=== PATIENT | female | born 1985 | race Caucasian/White ===

== ENCOUNTER 2017-06-22 12:37 | Observation (INO) ==
[2017-06-22] MEDS ORDERED: Acetaminophen 325 MG TABLET PO ONE (13:38)
[2017-06-22 13:43] LABS: Bilirubin,Urine Negative (Negative); Blood,Urine Negative (Negative); Clarity,Urine Clear (Clear); Color,Urine Yellow (Yellow); Glucose,Urine (UA) Normal (Normal); Ketones,Urine Negative (Negative); Leukocyte Esterase,Urine Negative (Negative); Nitrite,Urine Negative (Negative); PH,Urine 7.5 pH Units (5.0-8.0); Protein,Urine Negative (Neg-Trace); Specific Gravity,Urine < 1.005 (1.010-1.025); Urobilinogen,Urine Normal (Normal)
[2017-06-22 13:48] LABS: Amphetamine Screen,Urine Negative ng/mL (Cutoff=1000); Barbiturate Screen,Urine Negative ng/mL (Cutoff=200); Benzodiazepines Screen,Urine Negative ng/mL (Cutoff=200); Cannabinoid Screen,Urine Negative ng/mL (Cutoff = 50); Cocaine Screen,Urine Negative ng/mL (Cutoff= 300); Opiate Screen,Urine Negative ng/mL (Cutoff=300); Phencyclidine Screen,Urine Negative ng/mL (Cutoff=25)
--- NOTE | 2017-06-22 14:02 | OB/GYN Progress Note ---
Date of Encounter: 06/22/17 Time of Encounter: 13:59 - Assessment and Plan (1) Lower abdominal pain Current Visit: Yes Status: Acute Intermittent pain over the past 2 weeks, no alarm symptoms - consistent with round ligament pain No contractions noted on monitor. No LOF or vaginal bleeding FHT - baseline 140 with variability and accels - Category I UA negative Pt has close follow-up with primary OB. She can be discharged home with labor precautions (2) Headache Current Visit: Yes Status: Acute Pt reports headache consistent with tension type headache - consistent with the patient's previous headaches Denies taking any medication - will give tylenol BP 123/78 Qualifiers: Headache type: tension-type Headache chronicity pattern: acute headache Intractability: not intractable Qualified Code(s): G44.209 - Tension-type headache, unspecified, not intractable (3) 33 weeks gestation of Current Visit: Yes Status: Acute Subjective - Subjective Principal diagnosis: abdominal pain Interval history: Pt is a 32 year old female at 33w4d presenting to L&D with concerns of lower abdominal pain, headache, and hemorrhoids. She reports that for the past 2 weeks she has had intermittent lower abdominal pain. She denies fevers, chills , dyspnea, N/V, constipation, diarrhea, or dysuria. She isn't sure if this pain is contractions or not. She states she had a headache but has not taken any tylenol for it. She denies vision changes, RUQ pain, or edema. She is reporting some pain with hemorrhoids as well. She reports good movement. Denies loss of fluid, vaginal bleeding, or vaginal discharge. She denies any complications with this . She has an appointment with her primary OB in 2 days. I examined this patient and my medical decision-making was reviewed with the Resident Physician. I agree with the documented findings, disposition and treatment plan as described except to the extent set forth below. FELI Perez Antepartum ROS: new complaints, movement normal, no loss of fluid, no vaginal bleeding, no contractions Objective - Vital Signs Vital Signs: Intake and Output 06/21/17 06/22/17 06/22/17 23:59 07:59 15:59 Other: Weight 74.7 kg Patient Weight 06/22/17 23:59 Weight 74.7 kg - Exam FHR: auscultation normal, category 1 FHR comments: Baseline 140 with variability and accels - Category I Auscultation: bilateral: normal Abdomen: Present: normal appearance, soft, gravid, tenderness (mild tenderness in lower R and L quadrants) Uterus: Present: normal, firm - Labs Labs: Abnormal lab results Ur Specific [place] < 1.005 (1.010-1.025) L 06/22/17 13:28
== END 2017-06-22 14:18 | disposition home or self-care (01) ==
LOC: 1NENULAB
PROVIDERS: ADMIT Student in an Organized Health Care Education/Training Program; ATTEND Student in an Organized Health Care Education/Training Program

== ENCOUNTER 2017-07-19 11:01 | Observation (INO) ==
[2017-07-19 12:00] LABS: Bilirubin,Urine Small (Negative); Blood,Urine Small (Negative); Clarity,Urine Turbid (Clear); Color,Urine Dark Yellow (Yellow); Glucose,Urine (UA) Normal (Normal); Ketones,Urine Trace mg/dL (Negative); Leukocyte Esterase,Urine Small (Negative); Nitrite,Urine Negative (Negative); PH,Urine 6.5 pH Units (5.0-8.0); Protein,Urine 30 mg/dL (Neg-Trace); Specific Gravity,Urine > 1.030 (1.010-1.025); Urobilinogen,Urine Normal (Normal)
[2017-07-19 12:01] LABS: Squamous Epithelial Cell,Urine Many per lpf (None-Few)
[2017-07-19 12:11] LABS: Mucus,Urine Many (Few)
[2017-07-19 12:12] LABS: Bacteria,Urine Many per hpf (None-Few)
[2017-07-19 12:13] LABS: RBC,Urine 0-3 per hpf (0-3)
--- NOTE | 2017-07-19 12:16 | OB/GYN Progress Note ---
Date of Encounter: 07/19/17 Time of Encounter: 12:03 - Assessment and Plan (1) 37 weeks gestation of Current Visit: Yes Status: Acute (2) Irregular uterine contractions Current Visit: Yes Status: Acute Subjective - Subjective Principal diagnosis: contractions Interval history: ppatient is a 31-year-old female at 37 + 2 weeks presented to L&D with contractions. contractions BMS morning at 9:30and vomited and did drink very much due to nausea yesterday or today. patient states that her urine was dark this morning. Patient did have a bloody show today but denies vaginal bleeding or leakage of fluid. Reports active movement. Denies complication with . Antepartum ROS: movement normal, contractions, no loss of fluid, no vaginal bleeding Objective - Exam FHR: category 1 Auscultation: bilateral: normal Abdomen: Present: normal appearance, soft Uterus: Present: normal Cervical dilation: 3cm Cervix effacement: 80 station: -2 Comments: I examined this patient and my medical decision-making was reviewed with the Resident Physician. I agree with the documented findings, disposition and treatment plan as described except to the extent set forth below. FELI Perez
[2017-07-19 12:45] LABS: Amphetamine Screen,Urine Negative ng/mL (Cutoff=1000); Barbiturate Screen,Urine Negative ng/mL (Cutoff=200); Benzodiazepines Screen,Urine Negative ng/mL (Cutoff=200); Cannabinoid Screen,Urine Negative ng/mL (Cutoff = 50); Cocaine Screen,Urine Negative ng/mL (Cutoff= 300); Opiate Screen,Urine Negative ng/mL (Cutoff=300); Phencyclidine Screen,Urine Negative ng/mL (Cutoff=25)
--- NOTE | 2017-07-19 13:26 | Discharge Summary ---
Date of Encounter: 07/19/17 Time of Encounter: 13:26 - Discharge Diagnosis (1) 37 weeks gestation of Priority: Primary Status: Acute Comments: false labor no cervical change (2) Irregular uterine contractions Priority: Secondary Status: Acute (3) NST (non-stress test) reactive on surveillance Priority: Secondary Status: Acute Comments: baseline 130 bpm moderate variability +15x15 accels no decels noted. CAt. 1 tracing - Discharge Medications Home Medications: Sertraline [Zoloft] 100 mg PO DAILY 02/11/17 [History] Docusate [Colace] 100 mg PO DAILY 06/22/17 [History] Polyethylene Glycol 3350 [MiraLAX] 17 gm DAILY 07/19/17 [History] Ranitidine HCl [Acid Cork Painter And Grader] 75 mg PO DAILY 07/19/17 [History] Allergies/Adverse Reactions: 3 Allergy/AdvReac Type Severity Reaction Status Date / Time No Known Allergies Allergy Verified 06/22/17 13:16 Data Procedures and tests throughout hospitalization: Laboratory Tests 07/19/17 07/19/17 11:40 11:40 Urine Color Dark Yellow Urine Clarity Turbid A Urine pH 6.5 Ur Specific [place] > 1.030 H Urine Protein 30 H Urine Glucose (UA) Normal Urine Ketones Trace H Urine Blood Small H Urine Nitrite Negative Urine Bilirubin Small H Urine Urobilinogen Normal Ur Leukocyte Esterase Small H Urine Microscopic RBC 0-3 Urine Microscopic WBC 3-5 H Ur Squamous Epith Cells Many H Urine Bacteria Many H Urine Mucus Many H Urine Opiates Screen Negative Ur Barbiturates Screen Negative Ur Phencyclidine Scrn Negative Ur Amphetamines Screen Negative U Benzodiazepines Scrn Negative Urine Cocaine Screen Negative U Marijuana (THC) Screen Negative Labs on day of discharge: Labs from last 24 hours 07/19/17 07/19/17 11:40 11:40 Urine Color Dark Yellow Urine Clarity Turbid A Urine pH 6.5 Ur Specific [place] > 1.030 H Urine Protein 30 H Urine Glucose (UA) Normal Urine Ketones Trace H Urine Blood Small H Urine Nitrite Negative Urine Bilirubin Small H Urine Urobilinogen Normal Ur Leukocyte Esterase Small H Urine Microscopic RBC 0-3 Urine Microscopic WBC 3-5 H Ur Squamous Epith Cells Many H Urine Bacteria Many H Urine Mucus Many H Urine Opiates Screen Negative Ur Barbiturates Screen Negative Ur Phencyclidine Scrn Negative Ur Amphetamines Screen Negative U Benzodiazepines Scrn Negative Urine Cocaine Screen Negative U Marijuana (THC) Screen Negative Date of admission: 07/19/17 11:01 Primary care physician: PCP NONE Discharging clinician: Mara Dempsey Anticipated date of discharge: 07/19/17 - Patient Status Disposition: Home, Self-Care Condition: Good Functional capacity at discharge: independent ambulation - Discharge Instructions Follow Up With: NONE,PCP [Primary Care Provider] - - Diet and Activity Activity: increase activity as tolerated Diet: regular diet 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 Time Attestation: Total time spent providing and/or coordinating discharge services: Time Spent: Less than 30 minutes Exam - Constitutional General appearance IM: A&O X 3, pleasant, answers questions appropriately - Respiratory Respiratory exam: Present: CTAB - Cardiovascular Cardiovascular exam IM: Present: RRR, +S1, +S2 - GI/Abdominal GI/Abdominal exam IM: normal bowel sounds - Extremities Exam Extremities exam IM: Present: full ROM, normal capillary refill - Neurological Exam Neurological exam: alert, oriented X3, reflexes normal - Other Additional findings: FHR 130 bpm moderate amount of variability +15x15 accels no decels noted. Cat. 1 tracing - VTE Reasons for not Prescribing Prophylaxis: Treatment not Indicated - Low risk for VTE
== END 2017-07-19 13:30 | disposition home or self-care (01) ==
LOC: 1NENULAB
PROVIDERS: ADMIT Obstetrics & Gynecology; ATTEND Obstetrics & Gynecology

== ENCOUNTER 2017-07-20 22:01 | Inpatient (IN) ==
[2017-07-20] MEDS ORDERED: Metoclopramide 10 MG/2 ML VIAL IVP PRN (22:10)
[2017-07-20] MEDS ORDERED: Famotidine 20 MG/2 ML VIAL IVP PRN (22:10)
[2017-07-20] MEDS ORDERED: Naloxone 0.4 MG/ML INJ IVP PRN (22:10)
[2017-07-20] MEDS ORDERED: Penicillin G Potassium 5,000,000 UNIT in 0.9 % Sodium Chloride Mini Bag 100 ML IVPB ONE (22:14)
[2017-07-20] MEDS ORDERED: Ringers Solution, Lactated 1,000 ML ONE (22:15)
[2017-07-20] MEDS ORDERED: Ringers Solution, Lactated 1,000 ML IVC SCH (22:15)
[2017-07-20 22:54] LABS: Basophils % 0.2 %; Eosinophils # 0.4 K/mcL (0.0-0.6); Eosinophils % 3.1 %; Hematocrit 33.2 % (35.3-44.9); Hemoglobin 10.6 g/dL (11.5-15.4); Immature Granulocytes % 0.6 % (0-4); Lymphocytes # 1.9 K/mcL (0.6-4.6); Mean Corpuscular HGB Conc 31.9 g/dL (31.6-35.5); Mean Corpuscular Hemoglobin 26.7 pg (28.0-33.3); Mean Corpuscular Volume 83.6 fL (83.0-100.0); Mean Platelet Volume 12.4 fL (9.4-12.4); Monocytes # 1.3 K/mcL (0.0-1.3); Monocytes % 10.3 %; Platelet Count 175 K/mcL (140-400); Red Blood Count 3.97 M/mcL (3.82-4.97); Red Cell Distribution Width 12.3 % (11.5-14.5); Segmented Neutrophils % 70.8 %
--- NOTE | 2017-07-20 22:57 | OB/GYN History & Physical ---
Date of Encounter: 07/20/17 Time of Encounter: 22:55 Assessment and Plan (1) Uterine contractions Current visit: Yes Status: Acute Patient 9 cm upon arrival. Water intact. We will order penicillin due to her GBS positive status and anticipate spontaneous vaginal delivery. Anesthesia has been consulted for possible epidural. (2) 37 weeks gestation of Current visit: Yes Status: Acute History of Present Illness Chief complaint: Contractions HPI: Ms. Hernandez is a 32 year old female 012 presenting labor and delivery with chief concern of active labor. Patient states she started having contractions yesterday morning. She was seen at [facility] where she normally gets her care and was sent home. She states the pain became significantly worse today and came here. Patient denies any fluid leakage or vaginal bleeding. Denies any recent illnesses or fevers. She is GBS positive. She is HIV negative and rubella immune. Her blood type is O+. Patient is 37 weeks and 3 days. Past Med Surg Social Fam HX - Past Medical History Medical history: no medical history Psychiatric history: anxiety, depression, panic disorder - Past Surgical History Surgical History: other (D&C, facial plastics) - Social History Smoking Status: Former smoker Smokeless Tobacco Status: No Alcohol use: none Drug use: none - Family History Mother Adopted: No Living Status: Still Living Hx Family Cardiac Disorders: No Hx Family Respiratory Disorders: No Hx Family Cancer: No Hx Family GI Disorders: No Hx Family Endocrine Disorder: No Hx Family Neuromuscular Disorders: No Hx Family Neurologic Disorders: No Hx Family HEENT Disorders: No Hx Family Autoimmune Disorders: No Obstetrical History - Pregnancies : 4 Para: 2 Term: 2 : 0 Ab's: 1 Livin Medications and Allergies Sertraline [Zoloft] 100 mg PO DAILY 02/11/17 [History] Docusate [Colace] 100 mg PO DAILY 06/22/17 [History] Polyethylene Glycol 3350 [MiraLAX] 17 gm DAILY 07/19/17 [History] Ranitidine HCl [Acid Manager Loss Prevention] 75 mg PO DAILY 07/19/17 [History] 3 Allergy/AdvReac Type Severity Reaction Status Date / Time No Known Allergies Allergy Verified 06/22/17 13:16 Review of System OB All systems PM: reviewed and no additional remarkable complaints except as stated Exam - Constitutional Constitutional: well developed, well nourished, no acute distress, average body habitus - HEENT HEENT: Normocephaly, Mucus Membranes Moist - Neck Neck exam: full ROM, normal inspection - Lungs Respiratory exam: CTAB - Cardiovascular Cardiovascular exam: RRR - Abdomen Abdomen: Present: bowel sounds normal, gravid, non tender - Extremities Extremities exam: normal inspection - Cervix Dilation: 9 (Per nursing) Effacement: 100 - Uterus Uterus exam: Present: enlarged (gravid), normal contour Results Result Diagrams: 07/20/17 22:43 All other labs normal. - VTE Reasons for not Prescribing Prophylaxis: Treatment not Indicated - Low risk for VTE - Attending Attestation I examined this patient and my medical decision-making was reviewed with the Resident Physician. I agree with the documented findings, disposition and treatment plan as described. Suhail Berry CNM
[2017-07-20] MEDS ORDERED: Oxytocin 20 units/ LR 1000 mL 20 UNIT/1,000 ML BAG IVC ONE (23:07)
[2017-07-20] MEDS ORDERED: Lidocaine 1% 20 ML MDV ONE (23:26)
[2017-07-20] MEDS ORDERED: Oxytocin 20 units/ LR 1000 mL 20 UNIT/1,000 ML BAG IVC SCH (23:45)
[2017-07-20] MEDS ORDERED: Acetaminophen 325 MG TABLET PO PRN (23:50)
[2017-07-20] MEDS ORDERED: Ibuprofen 600 MG TABLET PO PRN (23:50)
[2017-07-20] MEDS ORDERED: Sennosides 8.6 MG TABLET PO PRN (23:50)
[2017-07-20] MEDS ORDERED: Benzocaine/Menthol 56 GM AEROSOL SPRAY TP PRN (23:50)
[2017-07-21] MEDS ORDERED: Penicillin G Potassium 2,500,000 UNIT in 0.9 % Sodium Chloride 100 ML IVPB SCH
--- NOTE | 2017-07-21 00:07 | OB/GYN Procedure Note ---
Delivery - Delivery Date: 07/21/17 Provider: Erin Berry (Dr Montserrat Frost, PGY-1 attended delivery) Intrapartum events: precipitous labor- <3hr Delivery induction: none Delivery monitor: external FHT, external uterine Anesthesia: none Estimated Blood Loss: 150 - (s) A Delivery Date: 07/20/17 Infant Delivery Time: 23:34 Presentation: vertex Position: KAILEY Route of delivery: Gender: Male Viability: Viable Pounds: 6 Ounces: 9 Weight Gram: 2965 kg at 1 minute: 9 at 5 mins: 8 Shoulder Dystocia: not encountered Specimens collected: cord blood Placenta: spontaneous - Repair Episiotomy: none Laceration Description: Superficial (periurethral and posterior vaginal superficial hemostatic lacs) - Complications Delivery complications: none Delivery comments: Patient quickly progressed to complete on own and began to bear down. AROM for small amount of clear fluid between contractions. Patient and fetus tolerated well. of viable vigorous male in the KAILEY position. No meconium, no nuchal cord, and no shoulder dystocia encountered. Infant placed onto maternal abdomen. Apgars of 9 and 8 at 1 and 5 minutes of age. Cord double clamped and cut when pulsations ceased. Cord blood and cord segment collected. Placenta delivered spontaneously, appears grossly intact; of note, extra lobe noted and unusual cord insertion. Sent to pathology. Upon perineal inspection bilateral periurethral and posterior superficial hemostatic lacs noted. All lacerations left to heal by second intention. EBL 150. Infant and mother stable in recovery. Dr Juarez notified. Dr Frost attended delivery and Suhail Berry CNM present in room for proctoring. - Disposition Mom disposition: stable in LDR [place] disposition: stable in LDR
[2017-07-21] MEDS ORDERED: Oxytocin 20 units/ LR 1000 mL 20 UNIT/1,000 ML BAG IVC SCH (00:14)
[2017-07-21] MEDS ORDERED: Sennosides 8.6 MG TABLET PO PRN (00:14)
[2017-07-21] MEDS ORDERED: Acetaminophen 325 MG TABLET PO PRN (00:14)
[2017-07-21] MEDS ORDERED: Benzocaine/Menthol 56 GM AEROSOL SPRAY TP PRN (00:14)
[2017-07-21] MEDS: Ibuprofen 600 MG TABLET PO PRN ×5 (00:44→23:30)
[2017-07-21 04:04] LABS: Basophils % 0.2 %; Eosinophils % 0.3 %; Hematocrit 30.1 % (35.3-44.9); Hemoglobin 9.6 g/dL (11.5-15.4); Immature Granulocytes % 0.7 % (0-4); Lymphocytes # 0.9 K/mcL (0.6-4.6); Lymphocytes % 6.3 %; Mean Corpuscular HGB Conc 31.9 g/dL (31.6-35.5); Mean Corpuscular Volume 84.8 fL (83.0-100.0); Mean Platelet Volume 13.1 fL (9.4-12.4); Monocytes # 1.2 K/mcL (0.0-1.3); Neutrophils # 12.4 K/mcL (1.6-8.9); Nucleated Red Blood Cells 0.1 /100 WBC (0); Platelet Count 175 K/mcL (140-400); Red Blood Count 3.55 M/mcL (3.82-4.97); Red Cell Distribution Width 12.2 % (11.5-14.5); Segmented Neutrophils % 84.5 %
[2017-07-21 04:18] LABS: Amphetamine Screen,Urine Negative ng/mL (Cutoff=1000); Barbiturate Screen,Urine Negative ng/mL (Cutoff=200); Benzodiazepines Screen,Urine Negative ng/mL (Cutoff=200); Cannabinoid Screen,Urine Negative ng/mL (Cutoff = 50); Cocaine Screen,Urine Negative ng/mL (Cutoff= 300); Opiate Screen,Urine Negative ng/mL (Cutoff=300); Phencyclidine Screen,Urine Negative ng/mL (Cutoff=25)
[2017-07-21] MEDS ORDERED: Prenatal Vit/FA 1 EACH TABLET PO SCH (09:00)
[2017-07-21] MEDS: Famotidine 20 MG TABLET PO SCH (09:46)
[2017-07-21] MEDS: Prenatal Vit/FA 1 EACH TABLET PO SCH (10:06)
--- NOTE | 2017-07-21 21:04 | OB/GYN Progress Note ---
Date of Encounter: 07/21/17 Time of Encounter: 21:02 - Assessment and Plan (1) Vaginal delivery Current Visit: Yes Status: Acute Stable day 1 Continue current management plan Anticipate discharge to [facility] status tomorrow Subjective - Subjective Interval history: Pt states feels well, has been in Nursery with infant most of day. 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 Patient reports: appetite normal, voiding normally, pain well controlled, ambulating normally : in NICU, bottle feeding Objective - Latest Vital Signs Latest vital signs: Vital Signs Temp Pulse Resp BP Pulse Ox 07/21/17 16:40 98.3 F 71 16 125/70 98 07/21/17 07:30 98.1 F 67 12 123/75 99 07/21/17 05:01 98.0 F 73 16 121/66 98 07/21/17 03:05 98.1 F 74 16 125/78 98 07/21/17 02:05 98.1 F 76 16 129/81 97 07/21/17 00:50 99.0 F 165 55 07/21/17 00:15 99.5 F 130 40 Intake and Output 07/21/17 07/21/17 07/21/17 07:59 15:59 23:59 Intake Total 400 / 400 240 / 240 550 / 550 Output Total 800 / 800 100 / 100 Balance -400 / -400 140 / 140 550 / 550 Intake: Oral 400 / 400 240 / 240 550 / 550 Output: Urine 800 / 800 100 / 100 Other: Meal Breakfast Percent of Meal Consumed 100% Stool Characteristics Normal for Patient Weight 77.111 kg Patient Weight 07/21/17 23:59 Weight 77.111 kg - Exam Lungs: bilateral: normal Chest: Normal S1 Extremities: Present: normal Abdomen: Present: normal appearance, soft, gravid Uterus: Present: normal - Labs Labs: Laboratory Results - last 24 hr 07/20/17 07/21/17 07/21/17 22:43 03:37 03:38 WBC 12.7 H 14.7 H RBC 3.97 3.55 L Hgb 10.6 L 9.6 L Hct 33.2 L 30.1 L MCV 83.6 84.8 MCH 26.7 L 27.0 L MCHC 31.9 31.9 RDW 12.3 12.2 Plt Count 175 175 MPV 12.4 13.1 H Immature Gran % 0.6 0.7 Seg Neutrophils % 70.8 84.5 Lymphocytes % 15.0 6.3 Monocytes % 10.3 8.0 Eosinophils % 3.1 0.3 Basophils % 0.2 0.2 Neutrophils # 9.0 H 12.4 H Lymphocytes # 1.9 0.9 Monocytes # 1.3 1.2 Eosinophils # 0.4 0.0 Basophils # 0.0 0.0 Nucleated RBCs/100 WBC 0.1 H Urine Opiates Screen Negative Ur Barbiturates Screen Negative Ur Phencyclidine Scrn Negative Ur Amphetamines Screen Negative U Benzodiazepines Scrn Negative Urine Cocaine Screen Negative U Marijuana (THC) Screen Negative
[2017-07-22 07:50] VITALS: BP 125/81
[2017-07-22] MEDS: Ibuprofen 600 MG TABLET PO PRN (09:38)
[2017-07-22] MEDS: Prenatal Vit/FA 1 EACH TABLET PO SCH (09:39)
[2017-07-22] MEDS: Famotidine 20 MG TABLET PO SCH (09:39)
--- NOTE | 2017-07-22 10:15 | Discharge Summary ---
Date of Encounter: 07/22/17 Time of Encounter: 10:12 - Discharge Diagnosis (1) Vaginal delivery Priority: Primary Status: Acute Comments: Patient doing well today. No complaints. Urination without difficulty. BM with no difficulty. Mood positive. Eating and drinking with no complaints. [place] lightened and minimal at this time. (2) Mother currently breast-feeding Priority: Secondary Status: Acute Comments: without difficulty. Will provide patient with RX for breast pump - Discharge Medications Prescriptions: Ibuprofen [Motrin] 600 mg PO Q6HR PRN #30 tablet PRN Reason: Cramping Breast Pump [BREAST PUMP] 1 each .ROUTE AD #1 each Docusate [Colace] 100 mg PO BID #20 capsule Vit/FA 1 each PO DAILY #30 tablet Home Medications: Sertraline [Zoloft] 100 mg PO DAILY 02/11/17 [History] Docusate [Colace] 100 mg PO DAILY 06/22/17 [History] Ranitidine HCl [Acid Quality Assurance Assistant] 75 mg PO DAILY 07/19/17 [History] Breast Pump [BREAST PUMP] 1 each .ROUTE AD #1 each 07/22/17 [Rx] Docusate [Colace] 100 mg PO BID #20 capsule 07/22/17 [Rx] Ibuprofen [Motrin] 600 mg PO Q6HR PRN #30 tablet 07/22/17 [Rx] Vit/FA 1 each PO DAILY #30 tablet 07/22/17 [Rx] Sertraline [Zoloft] 100 mg PO DAILY tablet 07/22/17 [Rx] Allergies/Adverse Reactions: 3 Allergy/AdvReac Type Severity Reaction Status Date / Time No Known Allergies Allergy Verified 07/21/17 01:11 Data Procedures and tests throughout hospitalization: Laboratory Tests 07/20/17 07/21/17 07/21/17 22:43 03:37 03:38 WBC 12.7 H 14.7 H RBC 3.97 3.55 L Hgb 10.6 L 9.6 L Hct 33.2 L 30.1 L MCV 83.6 84.8 MCH 26.7 L 27.0 L MCHC 31.9 31.9 RDW 12.3 12.2 Plt Count 175 175 MPV 12.4 13.1 H Immature Gran % 0.6 0.7 Seg Neutrophils % 70.8 84.5 Lymphocytes % 15.0 6.3 Monocytes % 10.3 8.0 Eosinophils % 3.1 0.3 Basophils % 0.2 0.2 Neutrophils # 9.0 H 12.4 H Lymphocytes # 1.9 0.9 Monocytes # 1.3 1.2 Eosinophils # 0.4 0.0 Basophils # 0.0 0.0 Nucleated RBCs/100 WBC 0.1 H Urine Opiates Screen Negative Ur Barbiturates Screen Negative Ur Phencyclidine Scrn Negative Ur Amphetamines Screen Negative U Benzodiazepines Scrn Negative Urine Cocaine Screen Negative U Marijuana (THC) Screen Negative Date of admission: 07/20/17 22:10 Primary care physician: PCP NONE Consults: 07/20/17 23:50 Consult to Catalytic Converter Operator [CONS] Routine Comment: Vaginal delivery, consult needed Discharging clinician: Gifty Wesley Anticipated date of discharge: 07/22/17 - Patient Status Disposition: Home, Self-Care Condition: Good Functional capacity at discharge: independent ambulation Overall status at discharge: patient is back to baseline - Discharge Instructions Follow Up With: LABELING ASSOCIATE Dora [Provider Group] - Diet and Activity Activity: increase activity as tolerated Diet: advance to your usual diet Hospital Course Episiotomy: none Hospital course: - Delivery Date: 07/21/17 Provider: Erin Berry (Dr Montserrat Frost, PGY-1 attended delivery) Intrapartum events: precipitous labor- <3hr Delivery induction: none Delivery monitor: external FHT, external uterine Anesthesia: none Estimated Blood Loss: 150 - Infant (s) A Delivery Date: 07/20/17 Infant Delivery Time: 23:34 Presentation: vertex Position: KAILEY Route of delivery: Gender: Male Viability: Viable Pounds: 6 Ounces: 9 Weight Gram: 2965 kg at 1 minute: 9 at 5 mins: 8 Shoulder Dystocia: not encountered Specimens collected: cord blood Placenta: spontaneous - Repair Episiotomy: none Laceration Description: Superficial (periurethral and posterior vaginal superficial hemostatic lacs) - Complications Delivery complications: none Delivery comments: Patient quickly progressed to complete on own and began to bear down. AROM for small amount of clear fluid between contractions. Patient and fetus tolerated well. of viable vigorous male in the KAILEY position. No meconium, no nuchal cord, and no shoulder dystocia encountered. Infant placed onto maternal abdomen. Apgars of 9 and 8 at 1 and 5 minutes of age. Cord double clamped and cut when pulsations ceased. Cord blood and cord segment collected. Placenta delivered spontaneously, appears grossly intact; of note, extra lobe noted and unusual cord insertion. Sent to pathology. Upon perineal inspection bilateral periurethral and posterior superficial hemostatic lacs noted. All lacerations left to heal by second intention. EBL 150. Infant and mother stable in recovery. Dr Juarez notified. Dr Frost attended delivery and Suhail Berry CNM present in room for proctoring. Time Attestation: Total time spent providing and/or coordinating discharge services: Exam - Constitutional Vitals: Temp Pulse Resp BP Pulse Ox 98.2 F 69 18 125/81 99 07/22/17 07:49 07/22/17 07:49 07/22/17 07:49 07/22/17 07:49 07/22/17 07:49 General appearance IM: A&O X 3, no acute distress - Respiratory Respiratory exam: Present: CTAB - Cardiovascular Cardiovascular exam IM: Present: RRR - GI/Abdominal GI/Abdominal exam IM: soft - Uterine Tone: Firm Uterus Position: 2 Fingers Below Umbilicus - Extremities Exam Extremities exam IM: Present: normal capillary refill, pedal edema. Absent: tenderness - Neurological Exam Neurological exam: oriented X3, no focal deficits - Attending Attestation I have seen this patient in addition to resident physician. I agree with the plan as outined. We will give pt depo provera for contraception prior to discharge per her request.
== END 2017-07-22 14:30 | disposition home or self-care (01) | DRG 560 ==
LOC: 1NENULAB → 1NENUOBS 07-21 02:11
PROVIDERS: ADMIT Advanced Practice Midwife; ATTEND Advanced Practice Midwife

== ENCOUNTER 2020-08-14 07:14 | Inpatient (IN) ==
[2020-08-14] MEDS ORDERED: Naloxone 0.4 MG/ML INJ IVP PRN (08:06)
[2020-08-14 08:22] LABS: Basophils # 0.1 K/mcL (0.0-0.2); Basophils % 0.6 %; Eosinophils # 0.2 K/mcL (0.0-0.6); Eosinophils % 2.8 %; Hematocrit 27.4 % (35.3-44.9); Hemoglobin 8.5 g/dL (11.5-15.4); Immature Granulocytes % 0.8 % (0-4); Lymphocytes # 1.1 K/mcL (0.6-4.6); Lymphocytes % 12.8 %; Mean Corpuscular Hemoglobin 25.4 pg (28.0-33.3); Mean Corpuscular Volume 81.8 fL (83.0-100.0); Mean Platelet Volume 11.9 fL (9.4-12.4); Monocytes # 0.7 K/mcL (0.0-1.3); Monocytes % 8.2 %; Neutrophils # 6.5 K/mcL (1.6-8.9); Platelet Count 167 K/mcL (140-400); Red Blood Count 3.35 M/mcL (3.82-4.97); Red Cell Distribution Width 12.7 % (11.5-14.5); Segmented Neutrophils % 74.8 %; White Blood Count 8.7 K/mcL (4.3-11.1)
[2020-08-14 09:02] LABS: Hepatitis B Surface Antigen Nonreactive (Nonreactive)
[2020-08-14 09:31] LABS: HIV-1&2 Antibody & p24 Ag Nonreactive (Nonreactive)
[2020-08-14] MEDS ORDERED: Rho Immune Globulin 1,500 UNIT SYRINGE IM PRN (10:36)
[2020-08-14] MEDS ORDERED: Prenatal Vit/FA 1 EACH TABLET PO SCH (10:36)
[2020-08-14] MEDS ORDERED: Lanolin 7 G OINT...G. TP PRN (10:36)
[2020-08-14] MEDS ORDERED: Oxytocin 20 units/ LR 1000 mL 20 UNIT/1,000 ML BAG IVC SCH (10:36)
[2020-08-14] MEDS ORDERED: Benzocaine/Menthol 56 GM AEROSOL SPRAY TP PRN (10:36)
[2020-08-14 11:00] LABS: Rubella IgG Antibody POSITIVE (POSITIVE); Varicella Zoster IgG Antibody Negative
[2020-08-14] MEDS: Acetaminophen 325 MG TABLET PO PRN ×2 (11:11→20:36)
[2020-08-14] MEDS ORDERED: Ibuprofen 800 MG TABLET PO PRN (20:27)
[2020-08-14 21:37] LABS: Amphetamine Screen,Urine Negative ng/mL (Cutoff=1000); Barbiturate Screen,Urine Negative ng/mL (Cutoff=200); Benzodiazepines Screen,Urine Negative ng/mL (Cutoff=200); Cannabinoid Screen,Urine Negative ng/mL (Cutoff = 50); Cocaine Screen,Urine Negative ng/mL (Cutoff= 300); Opiate Screen,Urine Negative ng/mL (Cutoff=300); Phencyclidine Screen,Urine Negative ng/mL (Cutoff=25)
[2020-08-14] MEDS: cloNIDine HCL 0.1 MG TABLET PO SCH (21:50)
[2020-08-14] MEDS: Nicotine 21 MG PATCH.TD24 TD SCH (21:50)
[2020-08-15 06:19] LABS: Basophils # 0.1 K/mcL (0.0-0.2); Basophils % 0.6 %; Eosinophils # 0.6 K/mcL (0.0-0.6); Eosinophils % 5.9 %; Hemoglobin 7.8 g/dL (11.5-15.4); Immature Granulocytes % 0.7 % (0-4); Lymphocytes # 1.9 K/mcL (0.6-4.6); Lymphocytes % 19.1 %; Mean Corpuscular Hemoglobin 25.1 pg (28.0-33.3); Mean Corpuscular Volume 83.6 fL (83.0-100.0); Mean Platelet Volume 12.5 fL (9.4-12.4); Monocytes # 0.9 K/mcL (0.0-1.3); Monocytes % 8.6 %; Neutrophils # 6.6 K/mcL (1.6-8.9); Nucleated Red Blood Cells 0.3 /100 WBC (0); Platelet Count 175 K/mcL (140-400); Red Blood Count 3.11 M/mcL (3.82-4.97); Segmented Neutrophils % 65.1 %; White Blood Count 10.1 K/mcL (4.3-11.1)
[2020-08-15] MEDS: Nicotine 21 MG PATCH.TD24 TD SCH (07:57)
[2020-08-15] MEDS: cloNIDine HCL 0.1 MG TABLET PO SCH (07:58)
[2020-08-15 08:01] VITALS: BP 118/71
[2020-08-15] MEDS ORDERED: Etonogestrel 68 MG IMPLANT IL ONE (08:56)
[2020-08-15] MEDS ORDERED: Iron Sucrose Complex 200 MG in 0.9 % Sodium Chloride 100 ML IVPB ONE (08:56)
[2020-08-15] MEDS ORDERED: Nicotine 21 MG PATCH.TD24 TD SCH (09:00)
[2020-08-15] MEDS ORDERED: Lidocaine/EPI 1:100k 1% 30 ML VIAL INFILT ONE (09:30)
== END 2020-08-15 14:55 | disposition home or self-care (01) | DRG 560 ==
LOC: 1NENULAB 07:14 → 1NENUOBS 09:32
PROVIDERS: ADMIT Advanced Practice Midwife; ATTEND Advanced Practice Midwife